=== PATIENT | male | born 1945 | race Two or more races ===

== ENCOUNTER 2023-11-01 10:02 | Emergency (ER) | payer MEDICARE, MEDICAID, OTHER, SELFPAY ==
[2023-11-01 10:08] VITALS: BP 139/71
--- NOTE | 2023-11-01 10:39 | ED.GENMED ---
History of Present Illness
General
Chief Complaint: Allergic Reaction
Source: patient and family
Exam Limitations: none
Time Seen by Provider: 11/01/23 10:23
Nursing documentation reviewed up to this point in time: agreed with
History of Present Illness
History of Present Illness:
78-year-old male with past medical history of hypertension hyperlipidemia CAD status post cardiac stent presenting to the emergency department today with concerns of redness and swelling throughout his face with a associated burning sensation no
pain no itchiness no lip involvement no trouble swallowing or breathing. No known exposures. Took Benadryl last night with some relief but no ongoing relief.
Review of Systems
Review of Systems
Allergies reviewed?: Yes
All Other Systems: ROS reviewed and negative except as documented in HPI and ROS
Phy Exam
Physical Exam
Physical Exam:
GENERAL: Alert , in no apparent distress
EYE: pupils equal and reactive
NECK: Supple, no significant adenopathy.
ENT: Red discoloration throughout the face no involvement of the mucous membrane no involvement of the eyes. Normal oral mucosa o/p clr, mmm.
CARDIAC: Regular rate and rhythm .
LUNGS: Clear breath sounds bilaterally, no acute respiratory distress, no wheezes/rales/rhonchi
ABDOMEN: Soft, without focal tenderness, no r/g, no cvat
NEUROLOGICAL: Alert and oriented, no focal neuro deficits
SKIN: Warm and dry, skin intact.
MUSCULOSKELETAL: No edema, well perfused.
PSYCH: Normal and appropriate interaction.
Course
Orders/Labs/Results
Orders:
Orders
11/01/23 10:37
Dexamethasone [Decadron] 10 mg PO NOW STA
Diphenhydramine [Benadryl] 50 mg PO NOW STA
Famotidine [Pepcid] 40 mg PO NOW STA
11/01/23 10:55
BMP [Basic Metabolic Panel] Urgent
CBC/With Diff [Complete Blood Count/With Diff] Urgent
Abnormal Lab Results
11/01/23
10:55
RBC 3.92 L 10^6/uL
(4.70-6.10)
Hgb 12.3 L g/dL
(13.0-18.0)
Hct 35.3 L %
(39.0-52.0)
MCH 31.4 H pg
(27.0-31.0)
Eosinophils % 7.7 H %
(0-6)
Glucose 173 H mg/dl
(70-99)
11/01/23 10:55
11/01/23 10:55
Vital Signs
Initial and Last Documented VS:
Initial Vital Signs
Temp Pulse Resp BP Pulse Ox
98.1 F 69 20 139/71 95
11/01/23 10:08 11/01/23 10:08 11/01/23 10:08 11/01/23 10:08 11/01/23 10:08
Last Documented Vital Signs
Temp Pulse Resp BP Pulse Ox
98.1 F 70 20 133/72 96
11/01/23 10:08 11/01/23 12:00 11/01/23 10:08 11/01/23 12:00 11/01/23 12:00
MDM/Problems Addressed
MDM/Problems Addressed:
78-year-old male presenting to the emergency department today with concerns of redness to his face starting yesterday. Took Benadryl with some improvement but no lasting relief. Vital signs are normal upon arrival patient no distress normal
posterior pharynx clear lungs no abdominal pain no nausea vomiting no evidence of anaphylaxis. Rash potentially consistent with contact dermatitis unclear what exposure did use after shave yesterday. But has used this before. After reassessment
after 1 hour of treatment patient had significant improvement of symptoms no symptoms of anaphylaxis labs unremarkable stable for discharge return precautions given.
*Critical Care Note
Total Time (30-74mins, 75-104mins- exclusive of procedures): Not Applicable
ED Attending Note
-
Portions of this chart may have been created with voice recognition software.� Occasional wrong word or��sound alike� substitutions may have occurred due to the inherent limitations of voice recognition software.
Discharge Plan
Departure
Patient Disposition: Home (Routine Discharge)
Date of Disposition: 11/01/23
Time of Disposition: 12:31
Patient with high blood pressure during this ER visit?: No
Condition: Good
Covid-19: Not Applicable
Discharge Problem:
Contact dermatitis
Instructions: Contact dermatitis
Prescriptions:
New
prednisone 20 mg tablet
40 mg PO DAILY 3 Days Qty: 6 0RF
cetirizine [Zyrtec] 10 mg tablet
10 mg PO BID 4 Days Qty: 8 0RF
famotidine 20 mg tablet
20 mg PO BID 4 Days Qty: 8 0RF
Referrals:
Smitha Conte MD [Family Provider] -
Natalia Ashford MD [Consulting Staff] - Follow up in 5-7 days
Activity Restrictions/Additional Instructions:
You came to the emergency department today with concerns of a rash to your face. Please take the prescribed medications and follow-up closely with the primary care doctor and fuel truck driver as needed. Return to the emergency department for any
worsening, new or concerning symptoms.
Interventions
Interventions:
*Risk Screen - Suicide Last Done: 11/01/23 10:35
*Neglect/Abuse Screening Last Done: 11/01/23 10:35
*ED COVID-19 Vaccine History Last Done: 11/01/23 10:35
ED- Cardiac Assessment Last Done: 11/01/23 11:07
ED- Pulmonary Assessment Last Done: 11/01/23 11:07
ED-Skin Assessment Last Done: 11/01/23 11:08
Discharge Date and Time
Print Language: ICELANDIC
[2023-11-01] MEDS: DECADRON 10 MG PO (10:45)
[2023-11-01] MEDS: BENADRYL 50 MG PO (10:45)
[2023-11-01] MEDS: PEPCID 40 MG PO (10:45)
[2023-11-01 11:03] LABS: % Basophils 0.9 % (0-2); % Eosinophils 7.7 % (0-6); % Immature Granulocytes 0.3 % (0-0.5); % Lymphocytes 23.7 % (20.5-51.1); % Monocytes 8.2 % (1.7-9.3); % Neutrophils 59.2 % (42.2-75.2); Absolute Basophils 0.1 10^3/uL (0-0.2); Absolute Eosinophils 0.6 10^3/uL (0-0.7); Absolute Lymphocytes 1.8 10^3/uL (1.2-3.4); Absolute Monocytes 0.6 10^3/uL (0.1-0.6); Absolute Neutrophils 4.4 10^3/uL (1.4-6.5); Hematocrit 35.3 % (39.0-52.0); Hemoglobin 12.3 g/dL (13.0-18.0); Mean Corp Hgb Conc. 34.8 g/dL (33.0-37.0); Mean Corpuscular Hgb 31.4 pg (27.0-31.0); Mean Corpuscular Volume 90.1 fL (80.0-94.0); Mean Platelet Volume 10.4 fL (7.4-10.4); Nucleated Red Blood Cells % 0 % (-); Platelet Count 200 10^3/uL (130-400); Red Blood Cell Count 3.92 10^6/uL (4.70-6.10); Red Cell Dist. Width 12.7 % (11.5-14.5); White Blood Cell Count 7.4 10^3/uL (4.8-10.8)
[2023-11-01 11:16] LABS: Blood Urea Nitrogen 17 mg/dl (9-20); Calcium 9.8 mg/dl (8.4-10.2); Carbon Dioxide 27 mmol/L (22-30); Chloride 100 mmol/L (98-107); Glucose 173 mg/dl (70-99); Potassium 3.7 mmol/L (3.5-5.1); Sodium 136 mmol/L (135-145); eGFR > 60.00
[2023-11-01 12:00] VITALS: BP 133/72
== END 2023-11-01 12:30 | disposition home or self-care (01) ==
LOC: EMR 10:02
PROVIDERS: Physician Assistant; EMERGENCY PHYSICIAN Emergency Medicine; FAMILY PHYSICIAN Family Medicine
DX: L25.9 Unspecified contact dermatitis, unspecified cause (principal); I10 Essential (primary) hypertension; E78.5 Hyperlipidemia, unspecified; I25.10 Atherosclerotic heart disease of native coronary artery without angina pectoris; Z95.5 Presence of coronary angioplasty implant and graft; Z88.2 Allergy status to sulfonamides; Z88.8 Allergy status to other drugs, medicaments and biological substances; Z88.6 Allergy status to analgesic agent; Z91.041 Radiographic dye allergy status
CPT/HCPCS: 99283; 80048; 85025

== ENCOUNTER 2023-11-02 15:55 | Emergency (ER) | payer MEDICARE, MEDICAID, OTHER, SELFPAY ==
[2023-11-02 15:55] VITALS: BMI 30.1
[2023-11-02 15:58] VITALS: BP 105/57
[2023-11-02 16:07] VITALS: BP 105/58
--- NOTE | 2023-11-02 16:54 | ED.GENMED ---
History of Present Illness
General
Chief Complaint: Allergic Reaction
Time Seen by Provider: 11/02/23 16:54
History of Present Illness
History of Present Illness:
HPI: Patient was seen here yesterday with facial swelling started on prednisone, Benadryl, and Pepcid. She had some increasing concern in her throat and came in here for reevaluation. I was concerned because he also had some dizziness earlier as
well. He seemed to improve initially yesterday after seen however worsened after this morning.
EXAM:
GENERAL: Well appearing
HEENT: Moist oral mucosa, posterior pharynx widely patent
CARDIOVASCULAR: No murmurs, normal heart rate, regular rhythm, No chest wall tenderness
PULMONARY: No respiratory distress, breath sounds are clear and equal
ABDOMEN: Soft with no peritoneal signs, no tenderness
NEUROLOGIC: Excellent strength all extremities, no coordination deficits
EXTREMITIES: Nontender, no edema, moves all extremities equally
SKIN: Blanching splotchy erythema noted to the face down to the anterior neck
TIME OF INITIAL ENCOUNTER: 4:50 PM
NUMBER AND COMPLEXITY OF PROBLEMS ADDRESSED AT THE ENCOUNTER
� Chronic conditions affecting care: A-fib, has AICD, high blood pressure, hyperlipidemia, diabetes, CAD
� Acute Exacerbation and/or Progression of Chronic Illness: This is an acute but recurring problem
� Differential Diagnosis includes: Allergic reaction, dermatitis, airway involvement not noted on exam today
AMOUNT AND/OR COMPLEXITY OF DATA TO BE REVIEWED AND ANALYZED
� I performed an independent evaluation of and my interpretation is:
EKG:
CT:
X-rays:
Laboratory Studies: White count 17.3 however the patient recently received steroids, hemoglobin 0.7, creatinine normal, glucose 246
Other:
� Review of other/old records: Blood work from yesterday was reviewed and is unremarkable, I also reviewed the records indicate they have received oral medications yesterday
� Clinical information was obtained by an independent historian: I spoke to daughter and at bedside
� Prescriptions/Medications Considered but not given:
� Further testing considered but not performed:
RISK OF COMPLICATIONS AND/OR MORBIDITY OR MORTALITY OF PATIENT MANAGEMENT
� Social determinants of health affecting care: Lives at home
� Discussion with other providers:
� Escalation of care including admission/observation vs risk of discharge considered: As he has been taking oral medication and not improving currently, will start IV and give IV meds. Overall there has been some improvement on
reassessment at 8:40 PM. He will resume steroids tomorrow morning. He is already also prescribed Zyrtec and Pepcid. I have also given him contact information for local foreign collection clerk. He is on some new medications for diabetes.
Phy Exam
Physical Exam
Physical Exam:
See HPI
Course
Orders/Labs/Results
Orders:
Orders
11/02/23 17:00
Diphenhydramine [Benadryl] 25 mg IV NOW STA
Famotidine [Pepcid] 20 mg IV NOW STA
MethylPREDNISolone PF [Solu-Medrol Pf] 125 mg IV NOW STA
11/02/23 17:26
Basic Metabolic Panel Urgent
Complete Blood Count/With Diff Urgent
11/02/23 19:39
Diphenhydramine [Benadryl] 50 mg .ROUTE .STK-MED ONE
Famotidine [Pepcid] 20 mg .ROUTE .STK-MED ONE
11/02/23 19:45
Diphenhydramine [Benadryl] 25 mg IV NOW STA
Famotidine [Pepcid] 20 mg IV NOW STA
Abnormal Lab Results
11/02/23
17:26
WBC 17.3 H 10^3/uL
(4.8-10.8)
RBC 3.70 L 10^6/uL
(4.70-6.10)
Hgb 11.7 L g/dL
(13.0-18.0)
Hct 32.9 L %
(39.0-52.0)
MCH 31.6 H pg
(27.0-31.0)
Abs Immat Gran (auto) 0.1 H 10^3/uL
(0-0.05)
Absolute Neuts (auto) 14.7 H 10^3/uL
(1.4-6.5)
Absolute Monos (auto) 1.1 H 10^3/uL
(0.1-0.6)
Immature Gran % 0.6 H %
(0-0.5)
Neutrophils % 84.6 H %
(42.2-75.2)
Lymphocytes % 8.3 L %
(20.5-51.1)
Sodium 133 L mmol/L
(135-145)
BUN 27 H mg/dl
(9-20)
Glucose 246 H mg/dl
(70-99)
11/02/23 17:26
11/02/23 17:26
Vital Signs
Initial and Last Documented VS:
Initial Vital Signs
Temp Pulse Resp BP Pulse Ox
98.1 F 70 16 105/57 95
11/02/23 15:58 11/02/23 15:58 11/02/23 15:58 11/02/23 15:58 11/02/23 15:58
Last Documented Vital Signs
Temp Pulse Resp BP Pulse Ox
98.1 F 71 20 118/66 94
11/02/23 15:58 11/02/23 18:00 11/02/23 18:00 11/02/23 19:00 11/02/23 18:00
*Critical Care Note
Total Time (30-74mins, 75-104mins- exclusive of procedures): Not Applicable
ED Attending Note
-
Portions of this chart may have been created with voice recognition software.� Occasional wrong word or��sound alike� substitutions may have occurred due to the inherent limitations of voice recognition software.
Discharge Plan
Departure
Patient Disposition: Home (Routine Discharge)
Date of Disposition: 11/02/23
Time of Disposition: 20:41
Patient with high blood pressure during this ER visit?: No
Discharge Problem:
Allergic reaction
Prescriptions:
New
epinephrine [EpiPen 2-Griffin] 0.3 mg/0.3 mL auto-injector
0.3 mg IM ONCE PRN (Reason: anaphylaxis) Qty: 2 0RF
No Action
prednisone 20 mg tablet
40 mg PO DAILY 3 Days Qty: 6 0RF
cetirizine [Zyrtec] 10 mg tablet
10 mg PO BID 4 Days Qty: 8 0RF
famotidine 20 mg tablet
20 mg PO BID 4 Days Qty: 8 0RF
Referrals:
Smitha Conte MD [Family Provider] -
Erik Hester MD [Non-Admitting Privileges] -
Activity Restrictions/Additional Instructions:
Will give an IV dose of steroids. Next dose of steroid tomorrow morning. Follow-up with an foreign collection clerk once you are off the steroids and Benadryl. I have given you the contact information for Dr. Hester. I also gave a prescription for an EpiPen.
Only use this for severe sensation of throat closure. If this does happen, return here. Continue the other medications prescribed as well as the steroid.
Interventions
Interventions:
*Risk Screen - Suicide Last Done: 11/02/23 17:15
*General Assessment Last Done: 11/02/23 17:15
*Neglect/Abuse Screening Last Done: 11/02/23 17:15
ED- Cardiac Assessment Last Done: 11/02/23 19:27
ED- Pulmonary Assessment Last Done: 11/02/23 19:27
ED-Skin Assessment Last Done: 11/02/23 19:27
Discharge Date and Time
Print Language: ESTONIAN
[2023-11-02 17:00] VITALS: BP 108/64
[2023-11-02] MEDS: SOLU-MEDROL PF 125 MG IV (17:35)
[2023-11-02 17:36] LABS: % Basophils 0.2 % (0-2); % Immature Granulocytes 0.6 % (0-0.5); % Lymphocytes 8.3 % (20.5-51.1); % Monocytes 6.3 % (1.7-9.3); % Neutrophils 84.6 % (42.2-75.2); Absolute Immature Granulocytes 0.1 10^3/uL (0-0.05); Absolute Lymphocytes 1.4 10^3/uL (1.2-3.4); Absolute Monocytes 1.1 10^3/uL (0.1-0.6); Absolute Neutrophils 14.7 10^3/uL (1.4-6.5); Hematocrit 32.9 % (39.0-52.0); Hemoglobin 11.7 g/dL (13.0-18.0); Mean Corp Hgb Conc. 35.6 g/dL (33.0-37.0); Mean Corpuscular Hgb 31.6 pg (27.0-31.0); Mean Corpuscular Volume 88.9 fL (80.0-94.0); Mean Platelet Volume 10.4 fL (7.4-10.4); Nucleated Red Blood Cells % 0 % (-); Platelet Count 212 10^3/uL (130-400); Red Cell Dist. Width 12.7 % (11.5-14.5); White Blood Cell Count 17.3 10^3/uL (4.8-10.8)
[2023-11-02] MEDS: PEPCID 20 MG IV ×2 (17:36→19:45)
[2023-11-02] MEDS: BENADRYL 25 MG IV ×2 (17:37→19:46)
[2023-11-02 17:56] LABS: Blood Urea Nitrogen 27 mg/dl (9-20); Calcium 9.2 mg/dl (8.4-10.2); Carbon Dioxide 23 mmol/L (22-30); Chloride 99 mmol/L (98-107); Estimated Creatinine Clearance 45 ml/min; Glucose 246 mg/dl (70-99); Potassium 4.2 mmol/L (3.5-5.1); Sodium 133 mmol/L (135-145); eGFR 56.23
[2023-11-02 18:00] VITALS: BP 121/71
[2023-11-02 19:00] VITALS: BP 118/66
== END 2023-11-02 21:02 | disposition home or self-care (01) ==
LOC: EMR 15:55
PROVIDERS: EMERGENCY PHYSICIAN Emergency Medicine; FAMILY PHYSICIAN Family Medicine
DX: T78.40XA Allergy, unspecified, initial encounter (principal); X58.XXXA Exposure to other specified factors, initial encounter; E11.9 Type 2 diabetes mellitus without complications
CPT/HCPCS: 99284; 96374; 96375 ×2; 96376 ×2; 80048; 85025

== ENCOUNTER 2024-06-06 12:30 | Emergency (ER) | payer MEDICARE, OTHER, SELFPAY ==
[2024-06-06 12:33] VITALS: BP 169/84
[2024-06-06 13:08] LABS: % Basophils 1.1 % (0-2); % Eosinophils 6.8 % (0-6); % Immature Granulocytes 0.4 % (0-0.5); % Lymphocytes 31.5 % (20.5-51.1); % Monocytes 8.3 % (1.7-9.3); % Neutrophils 51.9 % (42.2-75.2); Absolute Basophils 0.1 10^3/uL (0-0.2); Absolute Eosinophils 0.6 10^3/uL (0-0.7); Absolute Lymphocytes 2.7 10^3/uL (1.2-3.4); Absolute Monocytes 0.7 10^3/uL (0.1-0.6); Absolute Neutrophils 4.4 10^3/uL (1.4-6.5); Hematocrit 38.4 % (39.0-52.0); Hemoglobin 13.3 g/dL (13.0-18.0); Mean Corp Hgb Conc. 34.6 g/dL (33.0-37.0); Mean Corpuscular Hgb 30.4 pg (27.0-31.0); Mean Corpuscular Volume 87.7 fL (80.0-94.0); Mean Platelet Volume 10.5 fL (7.4-10.4); Nucleated Red Blood Cells % 0 % (-); Platelet Count 230 10^3/uL (130-400); Red Blood Cell Count 4.38 10^6/uL (4.70-6.10); White Blood Cell Count 8.5 10^3/uL (4.8-10.8)
[2024-06-06 13:18] LABS: ALT (SGPT) 35 U/L (0-50); AST (SGOT) 39 U/L (17-59); Albumin 5.3 g/dl (3.5-5.0); Alkaline Phosphatase 83 U/L (38-126); Blood Urea Nitrogen 15 mg/dl (9-20); Calcium 9.7 mg/dl (8.4-10.2); Carbon Dioxide 22 mmol/L (22-30); Chloride 100 mmol/L (98-107); Glucose 271 mg/dl (70-99); Potassium 3.4 mmol/L (3.5-5.1); Sodium 138 mmol/L (135-145); Total Protein 8.1 g/dl (6.3-8.2); eGFR > 60.00
[2024-06-06 13:28] LABS: Troponin I < 0.012 ng/ml
[2024-06-06] MEDS: TORADOL 15 MG IV (13:36)
[2024-06-06] MEDS: DECADRON 10 MG IV (13:36)
[2024-06-06 14:05] LABS: Troponin I < 0.012 ng/ml
--- NOTE | 2024-06-06 14:07 | ED.GENMED ---
History of Present Illness
General
Chief Complaint: Chest Pain
Source: patient and family
Exam Limitations: none
Time Seen by Provider: 06/06/24 13:00
Nursing documentation reviewed up to this point in time: agreed with
History of Present Illness
History of Present Illness:
Patient with history of CAD, atrial fibrillation, and pacemaker, presents to ED secondary to persistent left shoulder, neck, and arm pain over the past 5 days, which has progressed to chest wall pain over the past 2 days. Denies trauma. Denies
fever or chills. Denies nausea or vomiting. Denies shortness of breath. Denies recent illness. Denies coughing. Denies recent illness. Denies recent travel or surgery. Patient states that his symptoms are different from when he experienced
heart attack, resulting in stent placement. Currently, patient and family report that patient is an active, usually sitting in the chair most of the time.
Review of Systems
Review of Systems
Allergies reviewed?: Yes
All Other Systems: ROS reviewed and negative except as documented in HPI and ROS
Constitutional: Reports no symptoms
EENT: Reports no symptoms
Respiratory: Reports no symptoms; Denies trouble breathing
Cardiac: Reports chest pain
ABD/GI: Reports no symptoms
Musculoskeletal: Reports joint pain
Skin: Reports no symptoms
Neurological: Reports no symptoms
Phy Exam
Physical Exam
Physical Exam:
Physical Exam
General: mild painful distress, not acutely ill. afebrile
Head: nc/at. eomi
Neck: supple. normal range of motion. mild paracervical tenderness at base of neck.
Heart: s1/s2 regular rate and rhythm, no murmur. equal radial pulses.
Lungs: no acute respiratory distress. clear bilaterally. mild left upper chest wall tenderness to palpation.
Abdomen: normal bowel sounds. not tender.
Neuro: alert and oriented. no focal neurological deficits
Skin: no rash
Psychiatric: well kept. interactive and cooperative
Extremities: mild left posterior shoulder tenderness to palpation, without deformity.
Scores
Heart Score for Chest Pain Patients
STEMI patient?: Not applicable
Course
Orders/Labs/Results
Orders:
Orders
06/06/24 12:31
Cardiac Monitoring- Treatment ONCE
EKG- Treatment ONCE
IV Insert/Care/Rem.- Treatment PRN
Interrogate Pacemaker- Treatment ONCE
O2 Therapy [RESP] Urgent
Titrate/Wean O2 to maintain O2 sat greater than (%): 90
Special Instructions: Maintain sats >/=90%
Pulse Ox/spot Check [RESP] Urgent
Quantity: 1
Special Instructions: ON ROOM AIR
06/06/24 12:34
Electrocardiogram (*1) Urgent
Reason for Study: Chest Pain
06/06/24 12:35
EKG- Treatment ONCE
06/06/24 12:50
Complete Blood Count/With Diff Urgent
Troponin I Urgent
Troponin I Urgent
06/06/24 12:51
Comprehensive Metabolic Panel Urgent
06/06/24 13:16
Dexamethasone Sod Phosphate [Decadron] 10 mg IV NOW STA
Ketorolac [Toradol] 15 mg IV NOW STA
CR Cervical Spine 4 Or 5 Vw Urgent
Comment:
Reason For Exam: pain
CR Chest - 2 Views Urgent
Comment:
Reason For Exam: chest pain
Abnormal Lab Results
06/06/24 06/06/24
12:50 12:51
RBC 4.38 L 10^6/uL
(4.70-6.10)
Hct 38.4 L %
(39.0-52.0)
MPV 10.5 H fL
(7.4-10.4)
Absolute Monos (auto) 0.7 H 10^3/uL
(0.1-0.6)
Eosinophils % 6.8 H %
(0-6)
Potassium 3.4 L mmol/L
(3.5-5.1)
Glucose 271 H mg/dl
(70-99)
Albumin 5.3 H g/dl
(3.5-5.0)
06/06/24 12:50
06/06/24 12:51
Vital Signs
Initial and Last Documented VS:
Initial Vital Signs
Temp Pulse Resp BP Pulse Ox
98.2 F 71 16 169/84 99
06/06/24 12:33 06/06/24 12:33 06/06/24 12:33 06/06/24 12:33 06/06/24 12:33
Last Documented Vital Signs
Temp Pulse Resp BP Pulse Ox
98.2 F 71 18 169/84 95
06/06/24 12:33 06/06/24 16:00 06/06/24 15:30 06/06/24 12:33 06/06/24 16:00
MDM/Problems Addressed
MDM/Problems Addressed:
Patient with an unremarkable workup in ED, including x-ray and blood work. History and exam inconsistent with ACS, but likely musculoskeletal in etiology, as pain elicited with range of motion, palpation and certain movements. Patient also does
report mild improvement symptoms after treatment. Patient provided with arm sling for comfort, along with recommendation for PCP follow-up as an outpatient. Patient and family expressed understanding at time of discharge.
*Critical Care Note
Total Time (30-74mins, 75-104mins- exclusive of procedures): Not Applicable
ED Attending Note
-
Portions of this chart may have been created with voice recognition software.� Occasional wrong word or��sound alike� substitutions may have occurred due to the inherent limitations of voice recognition software.
Discharge Plan
Departure
Patient Disposition: Home (Routine Discharge)
Date of Disposition: 06/06/24
Time of Disposition: 16:45
Patient with high blood pressure during this ER visit?: Yes
Condition: Good
Discharge Problem:
Musculoskeletal pain, Cervical radiculopathy
Instructions: Radiculopathy of the neck and back (including sciatica) - Discharge instructions
Prescriptions:
New
tramadol 50 mg tablet
50 mg PO Q8H PRN (Reason: Pain) Qty: 12 0RF
dexamethasone 2 mg tablet
10 mg PO DAILY Qty: 5 0RF
No Action
prednisone 20 mg tablet
40 mg PO DAILY 3 Days Qty: 6 0RF
cetirizine [Zyrtec] 10 mg tablet
10 mg PO BID 4 Days Qty: 8 0RF
famotidine 20 mg tablet
20 mg PO BID 4 Days Qty: 8 0RF
epinephrine [EpiPen 2-Griffin] 0.3 mg/0.3 mL auto-injector
0.3 mg IM ONCE PRN (Reason: anaphylaxis) Qty: 2 0RF
Referrals:
Gabby Jackson MD [Family Provider] -
Activity Restrictions/Additional Instructions:
As discussed, please follow-up with your primary care physician for further evaluation and treatment. Your prescription has been sent electronically to [facility] in [place].
Interventions
Interventions:
*Risk Screen - Suicide Last Done: 06/06/24 12:33
*Neglect/Abuse Screening Last Done: 06/06/24 12:33
*Nursing Disposition Last Done: 06/06/24 17:32
ED- Cardiac Assessment Last Done: 06/06/24 16:33
Discharge Date and Time
Discharge Date/Time: 06/06/24 17:32
Print Language: TAJIK
== END 2024-06-06 17:32 | disposition home or self-care (01) ==
LOC: EMR 12:30
PROVIDERS: Emergency Medicine; EMERGENCY PHYSICIAN Emergency Medicine; FAMILY PHYSICIAN Family Medicine
DX: M54.12 Radiculopathy, cervical region (principal); M79.18 Myalgia, other site; R03.0 Elevated blood-pressure reading, without diagnosis of hypertension; I25.10 Atherosclerotic heart disease of native coronary artery without angina pectoris; I48.91 Unspecified atrial fibrillation; Z95.0 Presence of cardiac pacemaker
CPT/HCPCS: 99285; 96374; 96375; 71046; 72050; 80053; 84484; 85025; 93005

== ENCOUNTER 2025-04-05 14:47 | Emergency (ER) | payer MEDICARE, OTHER, SELFPAY ==
[2025-04-05 15:00] VITALS: BP 139/73
--- NOTE | 2025-04-05 15:26 | ED.MUSCINJ ---
HPI-Injury
General
Chief Complaint: Fall
Source: patient and family
Exam Limitations: none
Time Seen by Provider: 04/05/25 15:25
Nursing documentation reviewed up to this point in time: agreed with
History of Present Illness-Injury
Initial Injury comments:
80 yo male presents with hx a fib, cardiac stents x 5, AAA repair, pacemaker, HTN, HLD, NIDDM, his daughter who states 3 days ago, was walking in home, in kitchen, with his daughter, slipped on tile floor, he fell, landed on right knee and elbow. He
did not hit his head.
Has been limping to bathroom and not moving much otherwise due to persistent pain in the right knee and ankle. Also not swelling of these areas. Denies any other injury. Appetite good.
PCP visit due in 2 weeks.
Meds:
Allopurinol
Metoprolol
Plavix and Eliquis
Past History
Past History
ED Past Medical History: Arrthythmia, CAD, GERD, HTN, Hypercholesterolemia, NIDDM and Other (gout)
ED Past Surgical History: Cardiac (stents, defibrillator, pacemaker)
Social History
Tobacco: Non-smoker
Alcohol: None
Personal:
Living: with family
Review of Systems
Review of Systems
Allergies reviewed?: Yes
All Other Systems: ROS reviewed and negative except as documented in HPI and ROS
Constitutional: Denies fever or fatigue
Respiratory: Denies trouble breathing
Cardiac: Denies chest pain
ABD/GI: Denies abdominal pain, nausea, vomiting, diarrhea or anorexia
: Denies dysuria or difficulty voiding
Musculoskeletal: Reports other (Pain right knee, right ankle, right vasquez); Denies edema, neck pain or back pain
Skin: Reports other (tiny abrasion right knee, bruising R knee and anterior lower leg)
Neurological: Denies dizzy, headache, weakness or numbness
Phy Exam
Physical Exam
Physical Exam:
GENERAL: No acute distress. A&Ox3.
CONSTITUTIONAL: Afebrile.
EYES: clear, conjunctivae normal
ENMT: moist mucus membranes, Pharynx nl
RESPIRATORY: Regular respirations, nonlabored, lungs clear.
CARDIOVASCULAR: Regular rate and rhythm, no murmurs, no rubs.
GI: Soft, nontender, normal BS
MUSCULOSKELETAL: No spinal bony tenderness. Tenderness and mild swelling about the right knee, mild swelling and ecchymosis right lower leg from knee to mid vasquez. Tender and mildly swollen right lateral ankle. Moves with ease. Well perfused.
SKIN: Warm, dry, pink
PSYCH: Normal mood and affect. Well kept, interactive and appropriate
NEUROLOGIC: Awake, alert and oriented. No focal neurological deficits
Injury Course
Orders/Labs/Results
Orders:
Orders
04/05/25 15:21
Ankle, Right 3 view CR [CR Ankle - Right Min 3 Views *] Urgent
Comment:
Reason For Exam: fall and injury
CR Knee- Right 4 Or More View* Urgent
Comment:
Reason For Exam: fall and injury
04/05/25 15:32
Tib/Fib, Right 2 View [CR Leg Tibia/fibula Right 2 Vw] Urgent
Comment:
Reason For Exam: pain after fall.
04/05/25 16:38
Air Splint Right-Treatment ONCE
04/05/25 16:39
Emmanuel Wrap Right-Treatment ONCE
Emmanuel Wrap Right-Treatment ONCE
Comment: knee
Abnormal Lab Results
04/05/25
16:46
POC Glucose 200 H mg/dl
(70-99)
MDM/Problems Addressed
MDM/Problems Addressed:
80 yo male presents with hx a fib, cardiac stents x 5, AAA repair, pacemaker, HTN, HLD, NIDDM, his daughter who states 3 days ago, was walking in home, in kitchen, with his daughter, slipped on tile floor, he fell, landed on right knee and elbow. He
did not hit his head.
Has been limping to bathroom and not moving much otherwise due to persistent pain in the right knee and ankle. Also not swelling of these areas. Denies any other injury. Appetite good.
X-ray right ankle: Initially read by this examiner, no fracture or other abnormality noted.
X-ray left knee initially read by this examiner: No acute bony abnormality. No joint effusions noted
Tib-fib x-ray initially read by this examiner: No fracture noted.
Fingerstick blood sugar 200
PCP visit due in 2 weeks.
Pt OOB and ambulating well after air splint and emmanuel wraps applied.
DC'd via wheelchair.
*Pulse Oximetry
SaO2: 96
Oxygen Mode of Delivery: Room air
Patient hypoxic: not evaluated
*Critical Care Note
Total Time (30-74mins, 75-104mins- exclusive of procedures): Not Applicable
ED Attending Note
-
Portions of this chart may have been created with voice recognition software.� Occasional wrong word or��sound alike� substitutions may have occurred due to the inherent limitations of voice recognition software.
Discharge Plan
Departure
Patient Disposition: Home (Routine Discharge)
Date of Disposition: 04/05/25
Time of Disposition: 17:01
Patient with high blood pressure during this ER visit?: No
Condition: Good
Discharge Problem:
Sprain of ankle, right, Contusion of right knee, Contusion of right lower extremity
Instructions: Contusion (DC), Preventing falls in adults, Knee sprain, Ankle sprain - ED (DC)
Prescriptions:
No Action
epinephrine [EpiPen 2-Griffin] 0.3 mg/0.3 mL auto-injector
0.3 mg IM ONCE PRN (Reason: anaphylaxis) Qty: 2 0RF
nifedipine 30 mg Tablet Extended Release 24hr
30 mg PO DAILY
atorvastatin 40 mg Tablet
40 mg PO DAILY
amiodarone 200 mg Tablet
200 mg PO DAILY
pantoprazole 40 mg Tablet,Delayed Release (Dr/Ec)
40 mg PO DAILY
nitroglycerin 0.4 mg Tablet, Sublingual
0.4 mg SUBLINGUAL Q5-15M PRN (Reason: chest pain)
allopurinol 300 mg Tablet
300 mg PO DAILY
hydrochlorothiazide 25 mg Tablet
25 mg PO DAILY
metoprolol succinate 25 mg Tablet Extended Release 24 Hr
25 mg PO DAILY
cholecalciferol (vitamin D3) [Vitamin D3] 25 mcg (1,000 unit) Capsule
50 mcg PO DAILY
olmesartan 40 mg Tablet
40 mg PO DAILY
Eliquis 5 mg Tablet
5 mg PO BID
Incruse Ellipta 62.5 mcg/actuation Blister With Device
1 inh INHALATION DAILY
Referrals:
Gabby Jackson MD [Non-Admitting Privileges, Family Practice] - Follow up in 5-7 days
Jacky Naranjo MD [Active, Orthopedics] - As needed
Activity Restrictions/Additional Instructions:
As we discussed, the x-rays showed nothing broken or out of place.
Wear the emmanuel wraps as needed for swelling, comfort, support
Tylenol as needed for pain.
Keep your appointment with your doctor next week.
Interventions
Interventions:
*Risk Screen - Suicide Last Done: 04/05/25 14:48
*Neglect/Abuse Screening Last Done: 04/05/25 16:35
*ED COVID-19 Vaccine History Last Done: 04/05/25 15:01
*ED Influenza Vaccine History Last Done: 04/05/25 15:01
*Nursing Disposition Last Done: 04/05/25 17:17
ED-Musculoskeletal Assessment Last Done: 04/05/25 16:35
ED- Neurological Assessment Last Done: 04/05/25 16:35
ED-Skin Assessment Last Done: 04/05/25 16:35
Discharge Date and Time
Print Language: [email or web address]
[2025-04-05 16:52] LABS: Glucose - Point of Care 200 mg/dl (70-99)
== END 2025-04-05 17:17 | disposition home or self-care (01) ==
LOC: EMR 14:47
PROVIDERS: EMERGENCY PHYSICIAN Emergency Medicine
DX: S93.401A Sprain of unspecified ligament of right ankle, initial encounter (principal); S80.01XA Contusion of right knee, initial encounter; S80.11XA Contusion of right lower leg, initial encounter; W01.0XXA Fall on same level from slipping, tripping and stumbling without subsequent striking against object, initial encounter; Y93.01 Activity, walking, marching and hiking; Y92.000 Kitchen of unspecified non-institutional (private) residence as the place of occurrence of the external cause; E11.9 Type 2 diabetes mellitus without complications; I25.10 Atherosclerotic heart disease of native coronary artery without angina pectoris; I48.91 Unspecified atrial fibrillation; I10 Essential (primary) hypertension; E78.00 Pure hypercholesterolemia, unspecified; K21.9 Gastro-esophageal reflux disease without esophagitis; M10.9 Gout, unspecified; Z95.0 Presence of cardiac pacemaker; Z95.5 Presence of coronary angioplasty implant and graft; Z86.79 Personal history of other diseases of the circulatory system; Z79.01 Long term (current) use of anticoagulants
CPT/HCPCS: 99283; 73564; 73590; 73610; 82962